=== PATIENT | female | born 1980 | race Caucasian/White ===

== ENCOUNTER 2017-04-17 00:04 | Emergency (ER) | payer MEDICAID ==
[~2017-04-17 00:04] MED LIST: DIPH2%T PO; PERM5%T; POLY10O RIGHT EYE; PRED20 PO; RANI150T PO; ZITH250T PO
[2017-04-17 00:07] VITALS: BP 129/80; PULSE 77; RESP 16; TEMP 97.6; O2SAT 96
== END 2017-04-17 02:20 | disposition left against medical advice (07) ==
LOC: NED 00:04
DX: R68.89 Other general symptoms and signs (principal)
CPT/HCPCS: 99281

== ENCOUNTER 2018-01-03 16:57 | Emergency (ER) | payer SELFPAY ==
[~2018-01-03] VITALS: Ht 177.8 cm; Wt 81.5 kg
[2018-01-03 16:59] VITALS: BP 168/76; PULSE 113; RESP 20; TEMP 99.5; O2SAT 97
[2018-01-03] MEDS ORDERED: GUAI1SOL3 PO (18:27)
[2018-01-03] MEDS ORDERED: OSEL75 PO (18:27)
--- NOTE | 2018-01-03 18:27 | RADRPT ---
EXAM DATE/TIME: 01/03/2018 18:09 [facility] COMPARISON: No previous studies available for comparison. INDICATIONS : Cough. MEDICAL HISTORY : None. SURGICAL HISTORY : None. ENCOUNTER: Initial ACUITY: 1 day PAIN SCORE: 0/10 LOCATION: Bilateral chest FINDINGS: PA and lateral views of the chest demonstrate the lungs to be symmetrically aerated without evidence of mass, infiltrate or effusion. The cardiomediastinal contours are unremarkable. Osseous structure s are intact. CONCLUSION: Normal examination for a patient of this age. Osman Sr MD on January 03, 2018 at 18:25 Board Certified Radiologist. This report was verified electronically.
--- NOTE | 2018-01-03 18:35 | PD ---
HPI Chief Complaint: Cold / Flu Symptoms Time Seen by Provider: 18:04 Travel History International Travel<30 days: No Contact w/Intl Traveler<30days: No Traveled to known affect area: No History of Present Illness HPI 37-year-old female that presents to the ED for evaluation of cold-like symptoms. Per patient over symptoms started this morning. She states that her kids have been diagnosed with influenza and started on Tamiflu recently. She states that she has been feeling lousy since today. She states that she's been having a cough with some chest discomfort and back pain with the cough. Cough is nonproductive. Denies any history of asthma or COPD. No smoker. No recent travel. Per patient the pain is 7 out of 10. Denies any other medical issues. Per patient yesterday she was fine. States having some body aches and fever. PFSH Past Medical History Diabetes: Yes (GESTATIONAL) Immunizations Current: Yes ?: Not : 5 Para: 4 Past Surgical History Cholecystectomy: Yes Social History Alcohol Use: No Tobacco Use: Yes (3 CIGGS/DAY) Substance Use: No Allergies-Medications (Allergen,Severity, Reaction): Coded Allergies: No Known Allergies (Unverified , 04/17/17) Reported Meds & Prescriptions Reported Meds & Active Scripts Active Codeine/Guaifenesin 100-10 mg/5Ml (Guaifenesin-Codeine) 10 Mg-100 Mg/5 Ml Vale 5 Ml PO Q6HR PRN Tamiflu (Oseltamivir Phosphate) 75 Mg Cap 75 Mg PO BID 5 Days Zithromax Z-Jack (Azithromycin) 250 Mg Tab 250 Mg PO DIRECTED 500 MG (2 TABLETS) PO ON DAY 1, THEN 250 MG (1 TABLET) PO ON DAYS 2 TO 5. Polytrim Opth (Polymyxin/Trimethoprim Sulfate) 10 Ml Soln 1 Drop RIGHT EYE QID 7 Days Ranitidine 150 mg (Ranitidine HCl) 150 Mg Tab 150 Mg PO DAILY 5 Days Benadryl (Diphenhydramine HCl) 25 Mg Cap 25 Mg PO Q6H PRN 5 Days Deltasone (Prednisone) 20 Mg Tab 20 Mg PO DIRECTED 3 TABS DAILY FOR 3 DAYS,THEN 2 TABS DAILY FOR 3 DAYS, THEN 1 TAB DAILY FOR 3 DAYS. Reported Permethrin 5 % Cre Review of Systems Except as stated in HPI: all other systems reviewed are Neg Physical Exam Narrative GENERAL: Well-nourished, well-developed patient in no apparent distress. SKIN: Warm and dry. HEAD: Atraumatic. Normocephalic. EYES: Pupils equal and round reactive to light and accommodation. No scleral icterus. No injection or drainage. ENT: No nasal bleeding or discharge. Mucous membranes pink and moist. TMs are clear with no sign of infection or perforation. No mastoid tenderness. Ear canals are intact bilaterally. No lymphadenopathy. Nostril mucosa is red and moist with clear mucus noted. No sinus tenderness to palpation noted. Tonsils are not enlarged or swollen. No ulvua Deviation. Tongue is midline. NECK: Trachea midline. No JVD. No meningeal signs noted CARDIOVASCULAR: Regular rate and rhythm. RESPIRATORY: No accessory muscle use. Clear to auscultation. Breath sounds equal bilaterally. GASTROINTESTINAL: Abdomen soft, non-tender, nondistended. Hepatic and splenic margins not palpable. MUSCULOSKELETAL: Extremities without clubbing, cyanosis, or edema. No obvious deformities. NEUROLOGICAL: Awake and alert. No obvious cranial nerve deficits. Motor grossly within normal limits. Five out of 5 muscle strength in the arms and legs. Normal speech. PSYCHIATRIC: Appropriate mood and affect; insight and judgment normal. Data Data Last Documented VS Vital Signs Date Time Temp Pulse Resp B/P (MAP) Pulse Ox O2 Delivery O2 Flow Rate FiO2 01/03/18 16:59 99.5 113 20 168/76 (106) 97 Room Air Orders Orders Chest, Pa & Lat (01/03/18 ) Influenzae A/B Antigen (01/03/18 17:05) Ed Discharge Order (01/03/18 18:25) MDM Medical Decision Making Medical Screen Exam Complete: Yes Emergency Medical Condition: Yes Medical Record Reviewed: Yes Interpretation(s) Flu negative, chest x-ray negative for acute disease. Differential Diagnosis Influenza versus pneumonia versus viral illness versus bronchitis Narrative Course 37-year-old female that presents to the ED for evaluation of cold like symptoms. Patient was properly examined and was found to have signs and symptoms very consistent appears to be likely influenza. Flu test and chest x- ray were ordered in triage. This were all negative for acute disease. Patient does have exposure to flu at home from to kids have been diagnosed with positive flu. Because of her symptoms and recent exposure to influenza with no vaccination I do recommend starting patient on Tamiflu and cough medicine. Patient agrees with this. Told to take Motrin for pain. Given note for work. Follow-up with PCP. See ED worsening symptoms. Diagnosis Primary Impression: Influenza Patient Instructions: General Instructions Departure Forms: Tests/Procedures, Work Release Enter return to work date: Jan 06, 2018 Additional Instructions: Motrin and Tylenol for pain and fever. You can use [id number] antihistamine as well as well as Mucinex as needed for runny nose and congestion. Cough drops for cough as needed. Drink plenty of fluids. Follow-up with PCP. See ED for worsening symptoms. Med/Other Pt SpecificInfo: Prescription(s) given Scripts Guaifenesin-Codeine (Codeine/Guaifenesin 100-10 mg/5Ml) 10 Mg-100 Mg/5 Ml Vale 5 ML PO Q6HR Y for COUGH, #100 ML Prov: Jared Moore MD 01/03/18 Oseltamivir (Tamiflu) 75 Mg Cap 75 MG PO BID for Mgmt Viral Infection for 5 Days, #10 CAP 0 Refills Prov: Jared Moore MD 01/03/18 Disposition: 01 DISCHARGE HOME Condition: Stable Scott Lucas Jan 03, 2018 18:35
== END 2018-01-03 18:45 | disposition home or self-care (01) ==
LOC: NEPK 16:57
DX: J11.1 Influenza due to unidentified influenza virus with other respiratory manifestations (principal); Z72.0 Tobacco use
CPT/HCPCS: 71046; 87804; 99284

== ENCOUNTER 2018-02-05 22:31 | Emergency (ER) | payer SELFPAY ==
[~2018-02-05 22:31] MED LIST changes: +GUAI1SOL3 PO; +OSEL75 PO
[2018-02-06] MEDS ORDERED: TRAM50 PO (19:48)
[2018-02-06] MEDS ORDERED: PENI500T PO (19:48)
== END 2018-02-05 23:05 | disposition left against medical advice (07) ==
LOC: NED 22:31
DX: K08.89 Other specified disorders of teeth and supporting structures (principal); Z53.21 Procedure and treatment not carried out due to patient leaving prior to being seen by health care provider
CPT/HCPCS: 99281

== ENCOUNTER 2018-02-06 17:21 | Emergency (ER) | payer MEDICAID ==
[2018-02-06 17:56] VITALS: BP 174/93; PULSE 102; RESP 20; TEMP 98.9; O2SAT 99
[2018-02-06] MEDS ORDERED: oxyCODONE/ACETAMINOPHEN 5 MG/325 MG TAB PO ONE (19:00)
[2018-02-06] MEDS ORDERED: PENICILLIN V POTASSIUM 500 MG TAB PO ONE (19:00)
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
[2018-02-06] MEDS ORDERED: PENI500T PO (19:48)
[2018-02-06] MEDS ORDERED: TRAM50 PO (19:48)
== END 2018-02-06 20:11 | disposition home or self-care (01) ==
LOC: NEPK 17:21
DX: S02.2XXA Fracture of nasal bones, initial encounter for closed fracture (principal); S03.2XXA Dislocation of tooth, initial encounter; Y04.2XXA Assault by strike against or bumped into by another person, initial encounter
CPT/HCPCS: 70486

== ENCOUNTER 2018-02-21 21:31 | Emergency (ER) | payer MEDICAID, OTHER ==
[~2018-02-21 21:31] MED LIST changes: +PENI500T PO; +TRAM50 PO
[2018-02-21 21:37] VITALS: BP 151/88; PULSE 105; RESP 18; TEMP 98.1; O2SAT 98
[2018-02-21 22:32] LABS: AUTOMATED NEUTROPHIL # 7.2 TH/MM3 (1.8-7.7); BASOPHIL # 0.1 TH/MM3 (0-0.2); BASOPHIL % 0.5 % (0.0-2.0); EOSINOPHIL % 0.4 % (0.0-4.0); HEMATOCRIT 40.6 % (35.0-46.0); HEMOGLOBIN 14.1 GM/DL (11.6-15.3); LYMPH % 28.2 % (9.0-44.0); LYMPHOCYTE # 3.1 TH/MM3 (1.0-4.8); MEAN CELL VOLUME 93.1 FL (80.0-100.0); MEAN CORPUSCULAR HEMOGLOBIN 32.3 PG (27.0-34.0); MEAN CORPUSCULAR HGB CONC 34.7 % (32.0-36.0); MEAN PLATELET VOLUME 8.2 FL (7.0-11.0); MONO % 5.7 % (0.0-8.0); MONOCYTE # 0.6 TH/MM3 (0-0.9); NEUT % 65.2 % (16.0-70.0); PLATELET COUNT 331 TH/MM3 (150-450); RED BLOOD COUNT 4.36 MIL/MM3 (4.00-5.30); RED CELL DISTRIBUTION WIDTH 13.6 % (11.6-17.2)
[2018-02-21 23:01] LABS: ALBUMIN 3.8 GM/DL (3.4-5.0); AST (GOT) 27 U/L (15-37); BICARBONATE 24.4 MEQ/L (21.0-32.0); BLOOD UREA NITROGEN 6 MG/DL (7-18); CALCIUM 8.7 MG/DL (8.5-10.1); CHLORIDE 114 MEQ/L (98-107); CREATININE 0.83 MG/DL (0.50-1.00); GLOMERULAR FILTRATION RATE 77 ML/MIN (>89); GLUCOSE,RANDOM 110 MG/DL (74-106); SODIUM (NA) 144 MEQ/L (136-145)
[2018-02-21 23:02] LABS: ALT (GPT) 33 U/L (10-53)
[2018-02-21 23:04] LABS: ALKALINE PHOSPHATASE 82 U/L (45-117); TOTAL BILIRUBIN ADULT 0.2 MG/DL (0.2-1.0); TOTAL PROTEIN 8.1 GM/DL (6.4-8.2)
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
[2018-02-21] MEDS ORDERED: ACETAMINOPHEN 325 MG TAB PO ONE (23:15)
[2018-02-22 02:41] VITALS: BP 130/65; PULSE 89; RESP 18; TEMP 98.9; O2SAT 98
[2018-02-22 10:52] VITALS: BP 131/74; PULSE 88; RESP 18; O2SAT 99
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
--- NOTE | 2018-02-22 17:18 | PD ---
Physical Exam Date Seen by Provider: Feb 22, 2018 Time Seen by Provider: 17:17 Narrative 29-year-old female previously medically cleared for psychiatric evaluation after being Gilbert acted. Patient was seen by psychiatric services and deemed psychiatrically stable and safe for discharge at this time. Patient remains medically stable at this time. Follow-up will be based on psychiatric note. Data Data Last Documented VS Vital Signs Date Time Temp Pulse Resp B/P (MAP) Pulse Ox O2 Delivery O2 Flow Rate FiO2 02/22/18 10:52 88 18 131/74 (93) 99 Room Air 02/22/18 02:41 98.9 Orders Orders Complete Blood Count With Diff (02/21/18 22:09) Comprehensive Metabolic Panel (02/21/18 22:09) Psych Screen (02/21/18 22:09) Drug Screen, Random Urine (02/21/18 22:09) Alcohol (Ethanol) (02/21/18 22:09) Acetaminophen (Tylenol) (02/21/18 23:15) Diet Regular Basic (02/22/18 Breakfast) Diet Regular Basic (02/22/18 Lunch) Diet Regular Basic (02/22/18 Dinner) Labs Laboratory Tests Test 02/21/18 22:15 02/21/18 22:20 Urine Opiates Screen NEG Urine Barbiturates Screen NEG Urine Amphetamines Screen NEG Urine Benzodiazepines Screen POS Urine Cocaine Screen NEG Urine Cannabinoids Screen NEG White Blood Count 11.0 TH/MM3 Red Blood Count 4.36 MIL/MM3 Hemoglobin 14.1 GM/DL Hematocrit 40.6 % Mean Corpuscular Volume 93.1 FL Mean Corpuscular Hemoglobin 32.3 PG Mean Corpuscular Hemoglobin Concent 34.7 % Red Cell Distribution Width 13.6 % Platelet Count 331 TH/MM3 Mean Platelet Volume 8.2 FL Neutrophils (%) (Auto) 65.2 % Lymphocytes (%) (Auto) 28.2 % Monocytes (%) (Auto) 5.7 % Eosinophils (%) (Auto) 0.4 % Basophils (%) (Auto) 0.5 % Neutrophils # (Auto) 7.2 TH/MM3 Lymphocytes # (Auto) 3.1 TH/MM3 Monocytes # (Auto) 0.6 TH/MM3 Eosinophils # (Auto) 0.0 TH/MM3 Basophils # (Auto) 0.1 TH/MM3 CBC Comment DIFF FINAL Differential Comment Blood Urea Nitrogen 6 MG/DL Creatinine 0.83 MG/DL Random Glucose 110 MG/DL Total Protein 8.1 GM/DL Albumin 3.8 GM/DL Calcium Level 8.7 MG/DL Alkaline Phosphatase 82 U/L Aspartate Amino Transf (AST/SGOT) 27 U/L Alanine Aminotransferase (ALT/SGPT) 33 U/L Total Bilirubin 0.2 MG/DL Sodium Level 144 MEQ/L Potassium Level 3.7 MEQ/L Chloride Level 114 MEQ/L Carbon Dioxide Level 24.4 MEQ/L Anion Gap 6 MEQ/L Estimat Glomerular Filtration Rate 77 ML/MIN Ethyl Alcohol Level 90 MG/DL [facility] Medical Record Reviewed: Yes Supervised Visit with KANIKA: Yes Narrative Course 29-year-old female previously medically cleared for psychiatric evaluation after being Gilbert acted. Patient was seen by psychiatric services and deemed psychiatrically stable and safe for discharge at this time. Patient remains medically stable at this time. Follow-up will be based on psychiatric note. Diagnosis Primary Impression: Alcohol abuse Additional Impression: Alcohol-induced mood disorder Patient Instructions: General Instructions Disposition: DISCHARGE HOME Condition: Stable Buddy Roque Feb 22, 2018 17:18
== END 2018-02-22 18:00 | disposition home or self-care (01) ==
LOC: NEDAMB 21:31 → NEPJ 02-22 18:00
DX: F10.14 Alcohol abuse with alcohol-induced mood disorder (principal); F17.210 Nicotine dependence, cigarettes, uncomplicated; Y90.4 Blood alcohol level of 80-99 mg/100 ml
CPT/HCPCS: 80053; 80307; 85025; 99283